=== PATIENT | male | born 1950 | race Caucasian/White ===

== ENCOUNTER 2023-09-27 13:26 | Outpatient (REF) | payer MEDICARE, SELFPAY ==
[2023-09-27 14:55] LABS: Anion Gap 9.3 mmol/L (3-11); BUN 39 mg/dL (7-18); CO2 26.7 mmol/L (21.0-32.0); CREATININE 1.6 mg/dL (0.70-1.30); Calcium 9.2 mg/dL (8.5-10.1); Chloride 104 mmol/L (98-107); Estimated GFR 44.65 (mL/min/1.73m2); Glucose 100 mg/dL (74-106); Potassium 5.3 mmol/L (3.5-5.1); Sodium 140 mmol/L (136-145)
[2023-09-27 15:07] LABS: Bilirubin Small (Negative); Blood Negative (Negative); Clarity Clear (Clear); Glucose Negative (Negative); Ketones Trace mg/dL (Negative); Leukocyte Esterase Negative (Negative); Nitrite Negative (Negative); Specific Gravity >= 1.030 (1.005-1.025); Urobilinogen 0.2 mg/dL (Up to 0.2); pH 5.5 (5-8)
[2023-09-27 15:20] LABS: Bacteria Rare HPF (Negative); Epithelial Cells Rare HPF (Negative); Other Cells Rare Transitional (Negative); RBC 0-2 HPF (0-2); WBC 0-2 HPF (0-5)
[2023-09-27 15:24] LABS: C & S Indicated? No; Casts 10-20 Hyaline LPF (Negative); Crystals Negative HPF (Negative); Mucus Moderate (Negative)
[2023-09-28 09:12] LABS: PSA, Screening 0.7 ng/mL (<=6.5)
== END 2023-09-27 13:27 | disposition home or self-care (01) ==
LOC: NCHCN 13:26
PROVIDERS: PCP Internal Medicine; Visit Provider Family Medicine
DX: R31.9 Hematuria, unspecified (principal); R79.89 Other specified abnormal findings of blood chemistry; Z12.5 Encounter for screening for malignant neoplasm of prostate
CPT/HCPCS: 80048; 84153; 81003; 81015

== ENCOUNTER 2023-10-27 16:42 | Outpatient (REF) | payer MEDICARE, SELFPAY ==
[2023-10-27 21:34] LABS: Anion Gap 9.4 mmol/L (3-11); BUN 37 mg/dL (7-18); CO2 25.6 mmol/L (21.0-32.0); CREATININE 1.3 mg/dL (0.70-1.30); Chloride 106 mmol/L (98-107); Estimated GFR 57.29 (mL/min/1.73m2); Glucose 106 mg/dL (74-106); Potassium 4.9 mmol/L (3.5-5.1); Sodium 141 mmol/L (136-145); Vitamin B12 448 pg/mL (193-986)
== END 2023-10-27 16:43 | disposition home or self-care (01) ==
LOC: NCHCN 16:42
PROVIDERS: PCP Internal Medicine; Visit Provider Family Medicine
DX: E87.5 Hyperkalemia (principal); G62.9 Polyneuropathy, unspecified
CPT/HCPCS: 80048; 82607